=== PATIENT | female | born 1975 | race Caucasian/White ===

== ENCOUNTER → 2021-07-16 | Outpatient (CLI) | payer BC ==
--- NOTE | 2021-07-17 22:48 | CT ---
EXAMINATION TYPE: CT neck chest w con DATE OF EXAM: 07/16/2021 COMPARISON: NONE HISTORY: abnormal findings on left neck, pt has pain CT DLP: 1763.1 mGycm. Automated Exposure Control for Dose Reduction was Utilized. TECHNIQUE: CT scan of the thorax is performed following with IV Contrast, patient injected with 100 mL of Isovue 300. FINDINGS: NECK: Limited evaluation of the intracranial structures appear unremarkable. Bilateral globes and orbits ap pear symmetric and unremarkable. Parotid and submandibular glands appear unremarkable. Specific punct ate calcification in the right thyroid lobe which otherwise appears unremarkable. Nonspecific mildly prominent palatine tonsils and lingual tonsils; otherwise, the nasopharynx, oropha rynx, and hypopharynx appear unremarkable without mucosal lesion. Supraglottic, glottic, and subglott ic airway appear normal. Nonspecific prominent level 2 cervical chain lymph nodes bilaterally, none of which are enlarged by C T size criteria. Visualized paranasal sinuses and mastoid air cells are clear. Mild to moderate multilevel degenerativ e changes of the cervical spine CHEST: Cardiac size appears within normal limits. No pericardial effusion. Thoracic aorta and pulmonary misa jax are of normal caliber. No mediastinal, hilar, or axillary lymphadenopathy. Central airways are normal course and caliber. No focal consolidation, pleural effusion, or pneumotho rax. No suspicious pulmonary nodules. Moderate multilevel degenerative changes of the thoracic spine. Nonspecific surgical in the right upp er lateral abdomen outside the liver; otherwise, the upper abdomen appears unremarkable. IMPRESSION: 1. No focal neck mass. 2. Nonspecific nonenlarged mildly prominent level 2 cervical chain lymph nodes. 3. Nonspecific mildly prominent palatine and lingual tonsils. 4. No acute cardiopulmonary process within the chest.
== END | disposition home or self-care (01) ==
LOC: RADCTMAIN 19:05
PROVIDERS: ATTEND Family Medicine
DX: M54.2 Cervicalgia (principal); R07.9 Chest pain, unspecified
CPT/HCPCS: 70491; 71260; Q9967

== ENCOUNTER → 2022-03-04 | Outpatient (CLI) | payer BC ==
--- NOTE | 2022-03-04 13:17 | US ---
EXAMINATION TYPE: US thyroid st tissue head/neck DATE OF EXAM: 03/04/2022 COMPARISON: NONE CLINICAL HISTORY: R22.1 LOCALIZED SWELLING MASS LUMP. Patient states doctor feels lump. GLAND SIZE: Right Lobe: 5.7 x 2.2 x 1.6 cm Overall Parenchyma: homogenous Left Lobe: 5.2 x 2.0 x 1.6 cm Overall Parenchyma: homogeneous Isthmus Thickness: 0.7 cm NODULES RIGHT: # of nodules measured on right: 1 1. 0.7 X 0.5 x 0.5 cm, lower lateral, cystic or almost completely cystic, hypoechoic nodule, which is wider than tall, with smooth margins, with echogenic foci. Prior size: No prior LEFT: # of nodules measured on left: 0 ISTHMUS: # of nodules measured in the isthmus: 0 Bilateral neck scanned, no evidence of lymphadenopathy. IMPRESSION: 1. Normal thyroid ultrasound
== END | disposition home or self-care (01) ==
LOC: RADUSWWP 12:07
PROVIDERS: ATTEND Family Medicine
DX: R22.1 Localized swelling, mass and lump, neck (principal)
CPT/HCPCS: 76536

== ENCOUNTER → 2023-02-06 | Outpatient (CLI) | payer BC ==
--- NOTE | 2023-02-08 07:34 | MM ---
Reason for Exam: Screening (asymptomatic). Last mammogram was performed 7 year(s) and 0 month(s) ago. Patient History: Menarche at age 7. First Full-Term at age 17. Postmenopausal. Hormonal Contraceptives, from age 17 until age 18. Risk Values: [place] 5 year model risk: 0.7%. NCI Lifetime model risk: 7.3%. Prior Study Comparison: 02/03/2015 Bilateral Screening Mammogram, [facility]. 02/08/2016 Bilateral Screening Mammogram, [facility]. Tissue Density: There are scattered fibroglandular densities. Findings: Analyzed By CAD. There is no suspicious group of microcalcifications or new suspicious mass in either breast. Overall Assessment: Negative, BI-RAD 1 Management: Screening Mammogram of both breasts in 1 year. A clinical breast exam by your physician is recommended on an annual basis and results should be correlated with mammographic findings. Electronically signed and approved by: Daniel Vázquez D.O.
== END | disposition home or self-care (01) ==
LOC: RADMAMWWP 09:24
PROVIDERS: ATTEND Family Medicine
DX: Z12.31 Encounter for screening mammogram for malignant neoplasm of breast (principal); Z12.11 Encounter for screening for malignant neoplasm of colon; Z78.0 Asymptomatic menopausal state
CPT/HCPCS: 77063; 77067

== ENCOUNTER → 2023-04-11 | Outpatient (CLI) | payer BC ==
[2023-04-11 09:56] VITALS: BP 141/85; PULSE 100; RESP 17; TEMP 98.6
--- NOTE | 2023-04-11 11:07 | P.HPOB ---
History of Present Illness H&P Date: 04/11/23 Chief Complaint: The patient is here for her routine gynecologic exam. This is a 48-year-old with an LMP of 04/04/2023. The patient is here to establish with this office. It is been about 2 years since her last pelvic exam. She is status post tubal ligation. She states she had a cryotherapy of the cervix in 2019 for an abnormal Pap smear with positive HPV testing. She did have a follow-up Pap smear that was negative for HPV but did have some type of minor abnormality in the Pap smear cytology. She states her menstrual periods are regular every month she is without gynecologic complaints. Review of Systems The patient has gained 50 pounds since she started taking anxiety and depression medications. She denies respiratory, cardiac, or G.I. problems. Past Medical History Past Medical History: No Reported History Additional Past Medical History / Comment(s): Past [employer] history: Cryotherapy of the cervix in 2019 for an abnormal Pap smear and positive high-risk HPV testing. She denies any other STDs. History of Any Multi-Drug Resistant Organisms: None Reported Past Surgical History: Orthopedic Surgery Additional Past Surgical History / Comment(s): LEFT KNEE ARTHOSCOPIC 2015, R SHOULDER 2022 Past Anesthesia/Blood Transfusion Reactions: No Reported Reaction Past Psychological History: Anxiety, Depression (She denies current depression on medications.) Smoking Status: Current every day smoker (1 pack per day.) Past Alcohol Use History: None Reported Past Drug Use History: None Reported Additional History: She has been since 2006 and does not work outside of the home. Her daughter and grandson are currently living with her. She also watches other grandchildren on certain days of the week. - Past Family History Mother Family Medical History: CVA/TIA, Diabetes Mellitus Additional Family Medical History / Comment(s): . Father Family Medical History: Cancer, Diabetes Mellitus Additional Family Medical History / Comment(s): Esophageal cancer. . Brother(s) Family Medical History: Diabetes Mellitus Medications and Allergies Home Medications Medication Instructions Recorded Confirmed Type Cholecalciferol [Vitamin D3 (25 25 mcg PO DAILY 04/11/23 04/11/23 History Mcg = 1000 Iu)] Escitalopram [Lexapro] 20 mg PO DAILY 04/11/23 04/11/23 History buPROPion XL [Wellbutrin XL] 300 mg PO DAILY 04/11/23 04/11/23 History clonazePAM 0.5 mg PO DAILY 04/11/23 04/11/23 History Allergies Allergy/AdvReac Type Severity Reaction Status Date / Time No Known Allergies Allergy Verified 04/11/23 09:49 Exam Vital Signs Temp Pulse Resp BP Pulse Ox 04/11/23 09:52 98.6 F 100 17 141/85 97 Intake and Output 04/10/23 04/11/23 04/11/23 22:59 06:59 14:59 Other: Weight 121.109 kg Height 5 feet 6 inches, weight 267 pounds, BMI 43.1. This is a well-developed well-nourished heavyset white female who is alert and oriented times 3 in no acute distress. HEENT: Within normal limits. NECK: Supple without mass or thyromegaly. CHEST AND LUNGS: Clear to auscultation. HEART: Regular rate and rhythm. BREASTS: Are without mass or discharge. AXILLARY EXAM: Negative for adenopathy. BACK: Negative for CVA tenderness. ABDOMEN: Soft, obese, nontender, without palpable masses. PELVIC EXAM: Normal external genitalia. Cervix and vagina appear normal. There is no unusual discharge. There is no evidence of prolapse. The uterus is midposition, nongravid size and nontender. There are no palpable adnexal masses or tenderness. Bimanual examination is somewhat limited secondary to her size. RECTAL EXAM: Rectovaginal exam is negative for mass or tenderness and is negative for occult blood. EXTREMITIES: Nontender. IMPRESSION: 1. 48 year old perimenopausal female who is status post tubal ligation, with normal gynecologic exam. 2. History of cryotherapy of the cervix in 2019 for some type of dysplasia. PLAN: 1. Pap smear cotest was performed. The patient has signed a records release for Dr. Perez's office to obtain her most recent Pap smears as well as records on her cryotherapy of the cervix in 2019 2. Self breast awareness was discussed with the patient. We have also discussed symptoms associated with inflammatory breast cancer. 3. Screening mammogram was done on 02/06/2023 and was benign. She will repeat this after 1 year. 4. Osteoporosis prevention was discussed. I have stressed the importance of adequate calcium, vitamin D and regular exercise. Recommended amounts of calcium and vitamin D were also discussed. 5. She states she is scheduled for a colonoscopy in July of this year. 6. She was advised to return in one year for her annual well woman exam.
== END ==
LOC: WWCWWP 09:37
PROVIDERS: ATTEND Obstetrics & Gynecology
DX: Z01.419 Encounter for gynecological examination (general) (routine) without abnormal findings (principal); F17.210 Nicotine dependence, cigarettes, uncomplicated; Z79.899 Other long term (current) drug therapy

== ENCOUNTER → 2025-04-22 | Outpatient (CLI) | payer BC ==
--- NOTE | 2025-04-22 20:47 | MR ---
MR foot LT wo con CLINICAL INDICATION: Female, 50 years old with history of M77.32 CALCANEAL SPUR, LEFT FOOT M89.8X7 M7 9.672; PHH, Lt foot pain at heel and top of foot. COMPARISON: None. TECHNIQUE: Noncontrast multiplanar, multiecho imaging of the left foot was performed, including T1-we ighted and fluid sensitive sequences. FINDINGS: Alignment: Anatomic. Bones: No stress fracture or AVN. Joint spaces: Moderate arthrosis the first MTP hallux sesamoid complex with subchondral cystic change of the first metatarsal head and trace joint effusion. Ligaments: Lisfranc ligament is intact. IM spaces: Multilobulated cystic structure at the dorsolateral aspect of the fourth intermetatarsal s pace (base of fourth and fifth metatarsals) with the largest discrete lobular measuring up to 1.4 cm; appears to emanate from the fourth intermetatarsal joint and likely represents a small ganglion the absence of contrast. Additional subcentimeter cystic focus the lateral aspect of the fifth metatarsal head emanating from the fifth MTP joint, also likely ganglion in the absence of contrast. Nonspecifi c fluid in the third intermetatarsal space, between the third and fourth metatarsal heads. Which is a ccompanied by a nonspecific periarticular/soft tissue edema at the third and fourth metatarsophalange al joints. Flexor tendons: Intact. Extensor tendons: Intact. Plantar fascia: Mild thickening of the middle band near the origin. Large plantar spur with subtle ed david-like marrow signal at its base. Mild perifascial edema at the plantar portion. Muscles: Virtually complete fatty replacement of the abductor digiti minimi and flexor digiti minimi brevis, nonspecific. Other: No other abnormality. IMPRESSION: 1. Mild plantar fasciitis. 2. Scattered suspected ganglion in the absence of contrast, the largest is a multilobulated cystic s tructure at the dorsolateral aspect of the fourth intermetatarsal space measuring up to 1.4 cm. [facility], Workstation: [employer]), 04/22/2025 8:45 PM
== END | disposition home or self-care (01) ==
LOC: RADMRIMAIN 16:13
PROVIDERS: ATTEND Podiatrist Foot & Ankle Surgery
DX: M77.32 Calcaneal spur, left foot (principal); M89.8X7 Other specified disorders of bone, ankle and foot; M72.2 Plantar fascial fibromatosis